=== PATIENT | male | born 2000 | race Caucasian/White ===

== ENCOUNTER → 2024-10-12 | Outpatient (CLI) | payer OTHER, SELFPAY ==
--- NOTE | 2024-10-12 12:45 | RAD_ITS ---
EXAM: XR Right Ankle Complete, 3 or More Views CLINICAL INDICATION: PAIN TECHNIQUE: Frontal, lateral and oblique views of the right ankle. COMPARISON: No relevant prior studies available. FINDINGS: BONES/JOINTS: See below. SOFT TISSUES: Soft tissue swelling without acute fracture. RAD/Ankle min 3 Views IMPRESSION: 1. Soft tissue swelling without acute fracture. 2. If symptoms persist, further evaluation with CT is recommended. Reading Location: [facility]
--- NOTE | 2024-10-12 12:45 | RAD_ITS ---
PROCEDURE: FOOT 2 VIEWS 10/12/2024 REASON FOR EXAM: PAIN TECHNIQUE: FOOT 2 VIEWS COMPARISON: None FINDINGS: There is no fracture or dislocation identified. Mineralization is normal. There is no focal soft tissue abnormality or radiopaque foreign body identified. RAD/Foot 2 Views IMPRESSION: No fracture or dislocation is identified. Reading Location: [facility]
== END | disposition home or self-care (01) ==
LOC: MTRAD 12:45
PROVIDERS: PCP Family Medicine; Referring Provider Physician Assistant; Visit Provider Physician Assistant
DX: M79.671 Pain in right foot (principal); M25.571 Pain in right ankle and joints of right foot
CPT/HCPCS: 73610; 73620